=== PATIENT | female | born 1955 | race Hispanic/Latino ===

== ENCOUNTER 2018-04-15 07:10 | Emergency (ER) | payer OTHER ==
[2018-04-15 07:23] VITALS: RESP 18; BMI 31.3
--- NOTE | 2018-04-15 08:00 | ED PDOC ---
Arrival/HPI - General Chief Complaint: Lower Extremity Problem/Injury Time Seen by Provider: 04/15/18 07:43 Historian: Patient - History of Present Illness Narrative History of Present Illness (Text): 04/15/18 07:57 62 year old female, with no significant past medical history, who presents to the emergency department complaining of right lateral ankle pain s/p hyper- inversion mechanism during a slip and fall down he stairs 3 hours ago. Patient notes pain and swelling to right ankle. Patient notes she walked to emergency department. Patient denies any fever, chills, chest pain, shortness of breath, nausea, vomiting, diarrhea, calf pain, back pain, neck pain, headache, dizziness , or any other complaints. Time/Duration: 1-3 hours Symptom Onset: Sudden Symptom Course: Unchanged Activities at Onset: Light Context: Home Past Medical History - Provider Review Nursing Documentation Reviewed: Yes - Infectious Disease Hx of Infectious Diseases: None - Reproductive Menopause: Yes - Cardiac Hx Hypertension: Yes - Psychiatric Hx Substance Use: No Family/Social History - Physician Review Nursing Documentation Reviewed: Yes Family/Social History: Unknown Family HX Smoking Status: Current Some Days Smoker Hx Alcohol Use: Yes Frequency of alcohol use: Socially Hx Substance Use: No Allergies/Home Meds Allergies/Adverse Reactions: Allergies No Known Allergies Allergy (Verified 04/15/18 07:21) Review of Systems - Physician Review All systems were reviewed & negative as marked: Yes - Review of Systems Constitutional: Normal Eyes: Normal ENT: Normal Respiratory: Normal. absent: SOB, Cough Cardiovascular: Normal. absent: Chest Pain Gastrointestinal: Normal. absent: Abdominal Pain, Nausea, Vomiting Genitourinary Female: Normal. absent: Dysuria, Frequency, Hematuria Musculoskeletal: Other (right lateral ankle pain). absent: Back Pain, Neck Pain Skin: Normal. absent: Rash Neurological: Normal. absent: Headache, Dizziness Endocrine: Normal Hemo/Lymphatic: Normal Psychiatric: Normal Physical Exam Vital Signs Reviewed: Yes Vital Signs Temp Pulse Resp BP Pulse Ox 04/15/18 07:10 97.8 F 63 18 147/69 96 Temperature: Afebrile Blood Pressure: Normal Pulse: Regular Respiratory Rate: Normal Appearance: Positive for: Well-Appearing, Non-Toxic, Comfortable Pain Distress: None Mental Status: Positive for: Alert and Oriented X 3 - Systems Exam Head: Present: Atraumatic, Normocephalic Pupils: Present: PERRL Extroacular Muscles: Present: EOMI Conjunctiva: Present: Normal Mouth: Present: Moist Mucous Membranes Neck: Present: Normal Range of Motion Respiratory/Chest: Present: Clear to Auscultation, Good Air Exchange. No: Respiratory Distress, Accessory Muscle Use Cardiovascular: Present: Regular Rate and Rhythm, Normal S1, S2. No: Murmurs Abdomen: No: Tenderness, Distention, Peritoneal Signs Back: Present: Normal Inspection Upper Extremity: Present: Normal Inspection. No: Cyanosis, Edema Lower Extremity: Present: Tenderness (rigth sided lateral posteral lateral tenderness), Swelling (rigth sided lateral posteral lateral swelling), Other ( able to plantar and dorsiflex). No: Edema, CALF TENDERNESS Neurological: Present: GCS=15, CN II-XII Intact, Speech Normal Skin: Present: Warm, Dry, Normal Color. No: Rashes Psychiatric: Present: Alert, Oriented x 3, Normal Insight, Normal Concentration Medical Decision Making ED Course and Treatment: 04/15/18 08:03 Impression: 62 year old female presents to the emergency department complaining of right lateral ankle pain s/p hyper-inversion during slip and fall down stairs. Plan: -- Xray Ankle -- Xray Foot -- Xray Tibia Fibula -- Reassess and disposition Progress Notes: 04/15/18 10:59 Tibia Fibula Xray reviewed, shows: BONES: There is an obliquely oriented fracture of the distal fibula above the ankle joint. The mid and proximal fibula is intact. JOINT SPACES: Unremarkable. OTHER FINDINGS: None. IMPRESSION: There is an obliquely oriented fracture of the distal fibula above the ankle joint. The mid and proximal fibula is intact. Ankle Xray reviewed, shows: BONES: There is an obliquely oriented minimally displaced fracture of the distal fibula above the level of the ankle joint. JOINTS: Normal. No osteoarthritis. Ankle mortise maintained. Talar dome intact SOFT TISSUES: Normal. OTHER FINDINGS: None. IMPRESSION: There is an obliquely oriented minimally displaced fracture of the distal fibula above the level of the ankle joint. Foot Xray reviewed, shows: BONES: Normal. No fracture. JOINTS: There is joint space narrowing in the 1st MTP joint SOFT TISSUES: Normal. OTHER FINDINGS: None. IMPRESSION: Joint space narrowing in the 1st MTP joint. No acute findings 04/15/18 11:25 Masromonaco consult appreciated . Pt placed in posterior splint . Neurovascular checks corroborative of the earlier noted. Pt crutch trained and educated as to importance of Mastromonaco follow up and nonweightbearing status over rlle a this point in time. - RAD Interpretation Radiology Orders: 04/15/18 07:21 ANKLE RIGHT 3 VIEWS ROUTINE [RAD] Stat FOOT RIGHT 3 VIEWS ROUTINE [RAD] Stat 04/15/18 08:00 TIBIA FIBULA RIGHT [RAD] Stat - Scribe Statement The provider has reviewed the documentation as recorded by the Scribjamie Cordova All medical record entries made by the Scribe were at my direction and personally dictated by me. I have reviewed the chart and agree that the record accurately reflects my personal performance of the history, physical exam, medical decision making, and the department course for this patient. I have also personally directed, reviewed, and agree with the discharge instructions and disposition. Disposition/Present on Arrival - Present on Arrival Any Indicators Present on Arrival: No History of DVT/PE: No History of Uncontrolled Diabetes: No Urinary Catheter: No History of Decub. Ulcer: No History Surgical Site Infection Following: None - Disposition Have Diagnosis and Disposition been Completed?: Yes Diagnosis: Right fibular fracture Disposition: HOME/ ROUTINE Disposition Time: 11:28 Patient Plan: Discharge Condition: GOOD Discharge Instructions (ExitCare): Fibula Fracture (DC) Print Language: CZECH Additional Instructions: REST /ICE APPLIQUE /MAINTAIN COMPRESSION SPLINT /ELEVATION of extremities. Non weight bearing status until cleared by orthopedist. Please follow up with Dr. Reich in 2 weeks as advised. TAKE PAIN MEDICINE NEEDED. . Prescriptions: Acetaminophen [Tylenol] 650 mg PO Q6 PRN #50 capsule PRN Reason: Pain, Moderate (4-7) Referrals: Nemesio Reich DO [Staff Provider] - Follow up with primary Forms: [facility] (Slovak)
--- NOTE | 2018-04-15 09:01 | RAD ---
PROCEDURE: Right Ankle Radiographs. HISTORY: fall COMPARISON: None FINDINGS: BONES: There is an obliquely oriented minimally displaced fracture of the distal fibula above the level of the ankle joint. JOINTS: Normal. No osteoarthritis. Ankle mortise maintained. Talar dome intact SOFT TISSUES: Normal. OTHER FINDINGS: None. IMPRESSION: There is an obliquely oriented minimally displaced fracture of the distal fibula above the level of the ankle joint.
--- NOTE | 2018-04-15 09:21 | RAD ---
PROCEDURE: Right Foot Radiographs. HISTORY: fall COMPARISON: None. FINDINGS: BONES: Normal. No fracture. JOINTS: There is joint space narrowing in the 1st MTP joint SOFT TISSUES: Normal. OTHER FINDINGS: None. IMPRESSION: Joint space narrowing in the 1st MTP joint. No acute findings
--- NOTE | 2018-04-15 09:23 | RAD ---
PROCEDURE: Radiographs of the right tibia and fibula. HISTORY: possible fine b2 fracture check syndemstic ligame COMPARISON: None available. TECHNIQUE: Frontal and lateral views obtained. FINDINGS: BONES: There is an obliquely oriented fracture of the distal fibula above the ankle joint. The mid and proximal fibula is intact. JOINT SPACES: Unremarkable. OTHER FINDINGS: None. IMPRESSION: There is an obliquely oriented fracture of the distal fibula above the ankle joint. The mid and proximal fibula is intact.
[2018-04-15 11:41] VITALS: BP 140/70; PULSE 64; TEMP 98; O2SAT 97
--- NOTE | 2018-04-15 13:32 | CON ---
DATE: 04/15/2018 ORTHOPEDIC CONSULT REPORT The patient is a 62-year-old female, slipped and fell this morning, injured her right ankle. X-ray shows oblique fracture of distal fibula and lateral malleolus with intact medial malleolus and no evidence of deltoid ligament disruption. The tenderness is only on the lateral malleolus, which is still stable in its mortise. Mild swelling, not unstable, so we put the patient in a compression dressing and a posterior splint. When all the swelling goes down, we will put her on a walking boot. It is a kind of fracture that can be treated without surgery since the deltoid ligament is intact and the lateral malleolus is in acceptable position, so after 10 days to a week spent on compression dressing and a splint, we put her on a walking boot in the office and it takes six to eight weeks to heal. FINAL DIAGNOSES: Stable lateral malleolar fracture, right ankle with intact deltoid ligament medially. Nemesio Reich DO
== END 2018-04-15 11:45 | disposition home or self-care (01) ==
LOC: ED 07:10
DX: S82.431A Displaced oblique fracture of shaft of right fibula, initial encounter for closed fracture (principal); W10.9XXA Fall (on) (from) unspecified stairs and steps, initial encounter; Y92.9 Unspecified place or not applicable

== ENCOUNTER 2018-11-13 12:03 | Outpatient (CLI) | payer OTHER | END 2018-11-13 12:04 | disposition home or self-care (01) | LOC: RAD 12:03 ==

== ENCOUNTER 2018-11-20 14:44 | Outpatient (CLI) | payer OTHER | END 2018-11-20 14:45 | disposition home or self-care (01) | LOC: RAD 14:44 ==

== ENCOUNTER 2018-11-24 13:25 | Outpatient (CLI) | payer OTHER | END 2018-11-24 13:26 | disposition home or self-care (01) | LOC: RAD 13:26 ==

== ENCOUNTER 2018-11-27 05:51 | Outpatient (CLI) | payer OTHER | END 2018-11-27 05:52 | disposition home or self-care (01) | LOC: PET-BROA 05:51 | DX: R92.0 Mammographic microcalcification found on diagnostic imaging of breast (principal) ==

== ENCOUNTER 2018-12-01 17:49 | Outpatient (CLI) | payer OTHER | END 2018-12-01 17:50 | disposition home or self-care (01) | LOC: OPLAB 17:49 ==

== ENCOUNTER 2018-12-03 08:04 | Outpatient (CLI) | payer OTHER | END 2018-12-03 08:05 | disposition home or self-care (01) | LOC: RAD 08:04 | DX: R92.8 Other abnormal and inconclusive findings on diagnostic imaging of breast (principal) ==

== ENCOUNTER 2018-12-05 11:46 | Outpatient (CLI) | payer OTHER | END 2018-12-05 11:47 | disposition home or self-care (01) | LOC: LAB 11:46 ==

== ENCOUNTER 2018-12-22 14:07 | Outpatient (CLI) | payer OTHER | END 2018-12-22 14:08 | disposition home or self-care (01) | LOC: OPLAB 14:07 ==

== ENCOUNTER 2019-01-05 15:38 | Outpatient (CLI) | payer OTHER | END 2019-01-05 15:39 | disposition home or self-care (01) | LOC: OPLAB 15:38 ==

== ENCOUNTER 2019-01-19 15:24 | Outpatient (CLI) | payer OTHER | END 2019-01-19 15:25 | disposition home or self-care (01) | LOC: OPLAB 15:24 ==

== ENCOUNTER 2019-01-24 10:28 | Outpatient (CLI) | payer OTHER | END 2019-01-24 10:29 | disposition home or self-care (01) | LOC: RAD 10:28 ==

== ENCOUNTER 2019-02-02 15:51 | Outpatient (CLI) | payer OTHER | END 2019-02-02 15:52 | disposition home or self-care (01) | LOC: OPLAB 15:51 ==

== ENCOUNTER 2019-02-16 15:19 | Outpatient (CLI) | payer OTHER | END 2019-02-16 15:20 | disposition home or self-care (01) | LOC: OPLAB 15:19 ==

== ENCOUNTER 2019-03-02 14:48 | Outpatient (CLI) | payer OTHER | END 2019-03-02 14:49 | disposition home or self-care (01) | LOC: OPLAB 14:48 ==

== ENCOUNTER → 2019-03-03 | Outpatient (CLI) | payer OTHER | LOC: OPLAB 14:46 ==

== ENCOUNTER 2019-03-16 17:22 | Outpatient (CLI) | payer OTHER | END 2019-03-16 17:23 | disposition home or self-care (01) | LOC: OPLAB 17:22 ==